=== PATIENT | male | born 1965 | race Caucasian/White ===

== ENCOUNTER 2024-04-03 11:26 | Emergency (ER) | payer MEDICAID ==
[~2024-04-03] VITALS: Ht 175.3 cm; Wt 81.6 kg
[2024-04-03] MEDS ORDERED: LIDOCAINE HCL 1% 20 ML VIAL ONE (12:08)
[2024-04-03] MEDS ORDERED: AMOXICILLIN-CLAVUL 875-125MG TABLET ONE (12:08)
[2024-04-03] MEDS ORDERED: TDAP DIPH,PERTUSS,TET VAC/PF 0.5 ML DISP.SYRIN IM ONE (12:09)
[2024-04-03] MEDS: LIDOCAINE HCL 1% 20 ML VIAL IJ ONE (12:14)
[2024-04-03] MEDS: AMOXICILLIN-CLAVUL 875-125MG TABLET PO ONE (12:15)
[2024-04-03] MEDS: TDAP DIPH,PERTUSS,TET VAC/PF 0.5 ML DISP.SYRIN IM ONE (12:15)
[2024-04-03] MEDS ORDERED: AMOX-430 PO (12:41)
[2024-04-03] MEDS ORDERED: HYDR-3973 PO (12:41)
[2024-04-03] MEDS ORDERED: ACETAMINOPHEN 500 MG TABLET ONE (12:45)
[2024-04-03] MEDS ORDERED: NEOMY/BACITRA/POLYMYXIN B OINT UD PACKET TP ONE (12:59)
[2024-04-03] MEDS: ACETAMINOPHEN 325 MG TABLET PO ONE (13:04)
[2024-04-03 13:08] VITALS: BP 136/89; TEMP 98.6; O2SAT 98
[2024-04-03] MEDS ORDERED: HYDR-3980 PO (19:38)
== END 2024-04-03 13:10 | disposition home or self-care (01) ==
LOC: ER 11:26
DX: S90.31XA Contusion of right foot, initial encounter (principal); E78.5 Hyperlipidemia, unspecified; W54.0XXA Bitten by dog, initial encounter; Y93.89 Activity, other specified; Y92.89 Other specified places as the place of occurrence of the external cause; Y99.8 Other external cause status
CPT/HCPCS: 12002; 73590; 73630; 90471; 90715; 99284; J3490; A4606; A4663; A9150